=== PATIENT | female | born 1940 | race Caucasian/White ===

== ENCOUNTER 2016-10-21 18:25 | Observation (INO) | payer MEDICARE, OTHER ==
--- NOTE | ~2016-10-21 | DS ---
Discharge Summary [facility] [address] [place]. [address] NAME: SENG RAY : 41 STATUS : DIS Desmond PAT#: [id number] AGE: 76 ADM/REG DATE : 10/21/16 MR#: [id number] REPORT SERV DATE: 10/23/16 DICTATED BY: BARRY GARCIA DATE: 10/22/16 REPORT STATUS : Draft TRANSCRIBED BY: MODL DATE: 10/22/16 ADMISSION DATE: 10/21/2016 DISCHARGE DATE: 10/22/2016 DISCHARGE DIAGNOSES: 1. Hypoxemia transfusion related. 2. Chest pain related to transfusion reaction. 3. Pancytopenia due to aplastic anemia versus myelodysplastic syndrome. 4. Hypertension. CONSULTATION: Oncology, Dr. Randall Asher. LABORATORY DATA: Blood Work: WBC 0.7, hemoglobin 7.0, hematocrit 20.6, and platelet count is 32. Sodium is 140, potassium is 4.4, chloride is 107, CO2 is 23, BUN is 21, creatinine is 0.91, and glucose is 184. HOSPITAL COURSE: Please refer to history and physical dictated by Dr. Morris on 10/21/2016 for complete admission details. This patient is a 76-year-old female, who presented as a direct admission from the Infusion Center due to possible reaction to platelets. The patient was placed under observation and observed due to hypoxemia and chest pain related to her transfusion reaction. The patient did deny pain over the next 24 hours. The patient was on room air without difficulty. O2 sats within normal limits. Noted the patient's pancytopenia due to her aplastic anemia versus myelodysplastic syndrome. The patient did receive one unit of packed RBCs prior to discharge. The patient's blood pressure was monitored throughout her stay. The patient is being discharged home in hemodynamically stable condition. We will follow up with Dr. Asher within one week. DISCHARGE MEDICATIONS: 1. Atenolol 25 mg one p.o. every morning. 2. Folic acid one p.o. every morning. 3. Hydrocodone 10/325 mg one p.o. every 4 hours p.r.n. for pain. 4. Albuterol inhaler two puffs inhale every 4 hours p.r.n. for shortness of breath. 5. Effexor 75 mg p.o. every evening. This discharge took less than 30 minutes. /MEENA Barry Garcia, EDWIGE Discharge Summary [address] [address] NAME: SENG RAY : 41 STATUS : DIS Desmond PAT#: [id number] AGE: 76 ADM/REG DATE : 10/21/16 MR#: [id number] REPORT SERV DATE: 10/23/16 DICTATED BY: BARRY GARCIA DATE: 10/22/16 REPORT STATUS : Draft TRANSCRIBED BY: MEENA DATE: 10/22/16 / [id number] CC: MD Baylee Allen M.D.
--- NOTE | ~2016-10-21 | HP ---
History And Physical [address] [place]. [address] NAME: SENG RAY : 41 STATUS : ADM Desmond PAT#: [id number] AGE: 76 ADM/REG DATE : 10/21/16 MR#: [id number] REPORT SERV DATE: 10/22/16 DICTATED BY: DILSHAD LOZANO DATE: 10/21/16 REPORT STATUS : Draft TRANSCRIBED BY: MODL DATE: 10/21/16 DATE OF ADMISSION: 10/21/2016 POINT OF ENTRY: Direct admission from Infusion Center. PRIMARY CARE PHYSICIAN: Dr. Leon. PRIMARY ONCOLOGIST/NIGHT SUPERVISOR: Dr. Asher. CHIEF COMPLAINT: Shortness of breath and hypoxemia. HISTORY OF PRESENT ILLNESS: Ms. 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 The patient was placed on oxygen and subsequently admitted to the Hospitalist Service for close observation and followup. At the time of my evaluation, the patient currently denies any shortness of breath, diaphoresis, chest pain, cough, sputum production, wheezing, lower extremity edema. States she feels much better. Chest x-ray was done prior to my evaluation which per my review shows no evidence of any intravascular volume overload, does show some mild cardiomegaly as well as status post coronary artery bypass grafting. The patient is currently saturating 100% on 2 L by nasal cannula. REVIEW OF SYSTEMS: Comprehensive review of systems otherwise negative unless listed in history of present illness. PAST MEDICAL HISTORY: 1. 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 2. Coronary artery disease, status post coronary artery bypass grafting. 3. Hypertension. 4. Hyperlipidemia. 5. Anxiety. 6. Atrial fibrillation, not currently on any anticoagulation secondary to pancytopenia. 7. Iron-deficiency anemia. 8. Gastroesophageal reflux disease. 9. History of stroke. 10.Peripheral arterial disease. SURGICAL HISTORY: Cholecystectomy, abdominal hysterectomy, right total hip, coronary bypass History And Physical [address] [place]. [address] NAME: SENG RAY : 41 STATUS : ADM Desmond PAT#: [id number] AGE: 76 ADM/REG DATE : 10/21/16 MR#: [id number] REPORT SERV DATE: 10/22/16 DICTATED BY: DILSHAD LOZANO DATE: 10/21/16 REPORT STATUS : Draft TRANSCRIBED BY: MODL DATE: 10/21/16 grafting, appendectomy, umbilical hernia repair. ALLERGIES: TO CODEINE. HOME MEDICATIONS: 1. Albuterol two puffs inhalation q.4 hours p.r.n. 2. Tenormin 25 mg daily. 3. Atorvastatin 20 mg daily, currently on hold per Dr. Asher. 4. Folic acid 1 mg daily. 5. Neurontin 600 mg at bedtime, currently on hold per Dr. Asher. 6. Hydrochlorothiazide 12.5 mg daily, currently on hold per Dr. Asher. 7. Blue 10/325 one tab q.6 hours p.r.n. 8. Lisinopril 40 mg daily, currently on hold per Dr. Asher. 9. Protonix 40 mg b.i.d., currently on hold per Dr. Asher. 10.Effexor 75 mg at bedtime. SOCIAL HISTORY: She is a former smoker, but quit greater than a year ago. Denies alcohol or illicits. FAMILY MEDICAL HISTORY: Mother, father, and siblings all with extensive family history of diabetes as well as congestive heart failure. LABS AND IMAGIN. Chest x-ray per my review shows borderline cardiomegaly as well as status post coronary artery bypass grafting, but no evidence of any focal infiltrate consolidation, effusion, or evidence of intravascular volume overload. 2. Labs are pending at the time of dictation. PHYSICAL EXAMINATION: VITAL SIGNS: Temperature is 98.3 degrees Fahrenheit, pulse is 87, respirations 16, saturating 100% on 2 L by nasal cannula, blood pressure 140/65. GENERAL: The patient is awake, alert, in no acute distress. Resting comfortably in bed. Well-developed, well-nourished, elderly female. HEENT: Atraumatic and normocephalic. Moist mucous membranes. Pupils are equal, round, reactive to light and accommodation. Extraocular eye movements intact. No scleral icterus. NECK: No jugular venous distention. No carotid bruits. CARDIAC: Irregularly irregular rate and rhythm. Normal S1, S2. No murmurs or gallops. LUNGS: On oxygen, but in no respiratory distress, speaking in full sentences. I do not appreciate any wheezes, rhonchi, or crackles, has good air movement. ABDOMEN: Soft, nontender, nondistended. Good bowel sounds. No rebound, guarding, or rigidity. EXTREMITIES: Warm, well-perfused. No cyanosis, clubbing, or edema. SKIN: Warm and dry. PSYCH: Affect appropriate. NEURO: Alert and oriented times three. Cranial nerves II through XII grossly intact. Speech is normal. Gait not assessed. History And Physical [address] [address] NAME: SENG RAY : 41 STATUS : ADM Desmond PAT#: [id number] AGE: 76 ADM/REG DATE : 10/21/16 MR#: [id number] REPORT SERV DATE: 10/22/16 DICTATED BY: DILSHAD LOZANO DATE: 10/21/16 REPORT STATUS : Draft TRANSCRIBED BY: MEENA DATE: 10/21/16 ASSESSMENT AND PLAN: Ms. Ray is a 76-year-old female with history of pancytopenia who was given a platelet transfusion today in our Infusion Center when she developed the acute onset of shortness of breath, diaphoresis, chest pain, and hypoxemic concerning for possible allergic reaction versus transfusion-related lung injury. PROBLEM LIST: 1. Transfusion-related hypoxemia. 2. Chest pain. 3. Pancytopenia. 4. History of coronary artery disease. 5. History of hypertension. 6. History of atrial fibrillation. PLAN: 1. Transfusion-related hypoxemia. Etiology is unclear at this time. Chest x-ray is clear affectively ruling out TRALI making likely it is an allergic reaction. We will attempt to wean off her oxygen as tolerated overnight. Place her on DuoNeb as well as incentive spirometry. I do not see any need at this time for diuresis. We will check some basic labs as well as EKG given reports of diaphoresis, chest pain, and shortness of breath in addition to the hypoxemia. 2. Chest pain. The patient currently denies any chest pain at this time, but does report some discomfort in the setting of the transfusion reaction. We will check EKG as well as a set of cardiac enzymes. 3. Pancytopenia. Defer to patient's primary oncologist/high wire artist. 4. DVT prophylaxis. TEDs and SCDs given bleeding risk, given pancytopenia. CODE STATUS: The patient wished to be full code. JUVENAL/MEENA Dilshad Lozano MD / [id number]
[~2016-10-21 18:25] MED LIST: ALTA5 PO; ASAB PO; ATEN25 PO; ATEN50 PO; AUG875 PO; C2 PO; CYANO1000T PO; EFFEXXR37 PO; FOLIC PO; HYDROCHLOROT12.5 MG PO; HYDROCHLOROT25 MG PO; KLONO1 PO; KLONOPIN WAF1 MG PO; LEXAPRO10 PO; LIPITOR20 PO; LISINOPRIL40 MG PO; LORTAB10 PO; MEPERIDINE; MICROZIDE PO; NAP500 PO; NEUR100 PO; NEUR300 PO; NEUR600 PO; NORCO1 TAB PO; PLAVIX PO; PR25 PO; PROMETHAZINE; PROTONIX PO; PROTONIX20 MG PO; PROZ10 PO; XARELTO10 MG PO; XARELTO20 MG PO; ZESTRIL20 MG PO; ZESTRIL40 MG PO; ZOCOR80 MG PO; [UNRECOGNIZED DRUG - OTHER]; [UNRECOGNIZED DRUG - OTHER]
[2016-10-21] MEDS ORDERED: ATEN25 PO (19:45)
[2016-10-21] MEDS ORDERED: NORCO1 TAB PO (19:46)
[2016-10-21] MEDS ORDERED: LIPITOR20 PO (19:47)
[2016-10-21] MEDS ORDERED: PROAIR HFA INH (19:47)
[2016-10-21] MEDS ORDERED: FOLIC PO (19:47)
[2016-10-21] MEDS ORDERED: NEUR600 PO (19:48)
[2016-10-21] MEDS ORDERED: PROTONIX PO (19:49)
[2016-10-21] MEDS ORDERED: EFFEXXR75 PO (19:49)
[2016-10-21] MEDS ORDERED: HCTZ12.5 PO (19:50)
[2016-10-21] MEDS ORDERED: LISINOPRIL40 MG PO (19:50)
[2016-10-21 21:14] LABS: MEAN CORPUSCULAR HEMOGLOB 33.5 pg (26.0-34.0); MEAN PLATELET VOLUME 10.2 fL (9.2-13.0); RBC DISTRIBUTION WIDTH 15.8 % (12.0-16.0)
[2016-10-21 21:26] LABS: A/G RATIO 0.9 (0.7-1.9); ALBUMIN 3.1 G/DL (3.5-5.0); BUN (BLOOD UREA NITROGEN) 21 MG/DL (6-23); CALCIUM, SERUM 8.5 MG/DL (8.5-10.4); CHLORIDE, SERUM 107 MMOL/L (96-112); CO2 (CARBON DIOXIDE) 23 MMOL/L (24-34); CREATININE 0.91 MG/DL (0.55-1.02); GFR AFRICAN AMERICAN 72 ML/MIN (>=60); GFR NON AFRICAN AMERICAN 62 ML/MIN (>=60); GLOBULIN 3.6 G/DL (2.5-4.1); HEMATOCRIT 20.6 % (36.0-48.0); MANUAL DIFF YES %; MEAN CORPUSCULAR VOLUME 98.6 fL (80-100); PLATELET COUNT 32 10/3/uL (150-400); POTASSIUM, SERUM 4.4 MMOL/L (3.5-5.3); RED CELL COUNT 2.09 10/6/uL (4.0-5.6); SGOT(AST) 108 U/L (5-40); SGPT(ALT) 106 U/L (5-65); SODIUM, SERUM 140 MMOL/L (135-148); TOTAL PROTEIN 6.7 G/DL (6.0-8.5); TROPONIN I 0.03 NG/ML (<0.05); WHITE BLOOD CELLS 0.7 10/3/uL (4.5-10.5)
[2016-10-21 21:28] LABS: ALKALINE PHOSPHATASE 156 U/L (45-117); GLUCOSE, SERUM 184 MG/DL (60-99); TOTAL BILIRUBIN 0.4 MG/DL (0-1.2)
[2016-10-21 21:48] LABS: BAND NEUTROPHILS 10 %; LYMPHOCYTES 43 %; MONOCYTES 2 %; MONOCYTES ABSOLUTE (CALC) 0.01 10/3/uL (0.21-1.20); NEUTROPHILS ABSOLUTE (CALC) 0.38 10/3/uL (2.02-8.40); SEGMENTED NEUTROPHIL (0) 45 %; TOTAL NUCLEATED CELLS 51
[2016-10-21 21:49] LABS: ANISOCYTOSIS 1+ (5-10/OIF) (0-5/OIF); SPHEROCYTES OCC (0-2/OIF)
== END 2016-10-22 18:24 | disposition home or self-care (01) ==
LOC: 4EA 18:25
PROVIDERS: Internal Medicine
DX: R09.02 Hypoxemia (principal); D61.818 Other pancytopenia; M19.90 Unspecified osteoarthritis, unspecified site; I10 Essential (primary) hypertension; Z86.73 Personal history of transient ischemic attack (TIA), and cerebral infarction without residual deficits; D69.6 Thrombocytopenia, unspecified; I25.10 Atherosclerotic heart disease of native coronary artery without angina pectoris; E78.5 Hyperlipidemia, unspecified; I48.91 Unspecified atrial fibrillation; D61.9 Aplastic anemia, unspecified; D50.9 Iron deficiency anemia, unspecified; F41.9 Anxiety disorder, unspecified; I73.9 Peripheral vascular disease, unspecified; K21.9 Gastro-esophageal reflux disease without esophagitis; Z87.891 Personal history of nicotine dependence; Z79.899 Other long term (current) drug therapy; Z90.49 Acquired absence of other specified parts of digestive tract; Z90.710 Acquired absence of both cervix and uterus; Z98.890 Other specified postprocedural states; Z88.5 Allergy status to narcotic agent
CPT/HCPCS: 36415; 36430; 36513; 71010; 80053; 83880; 84484; 85025; 86850; 86900; 86901; 86920; 93005; 96374; A9270-GY; G0378; J0360; P9035; P9057

== ENCOUNTER 2016-11-04 14:17 | Inpatient (IN) | payer MEDICARE, OTHER ==
--- NOTE | ~2016-11-04 | DS ---
Discharge Summary [facility] [address] [facility] [place]. [address] NAME: SENG RAY : 41 STATUS : DIS IN PAT#: [id number] AGE: 76 ADM/REG DATE : 11/04/16 MR#: [id number] REPORT SERV DATE: 11/19/16 DICTATED BY: RANDALL MALONEY III DATE: 11/19/16 REPORT STATUS : Draft TRANSCRIBED BY: MODMerly DATE: 11/19/16 Data Collection from hospitalization DISCHARGE DIAGNOSES: 1. Aplastic anemia. 2. Hypertension. 3. Chronic pain. 4. Former smoker. CONSULTATIONS: None. PROCEDURES PERFORMED: None. MEDICATIONS: ProAir two puffs via inhaler every four hours as needed, Tenormin 25 mg every morning, cyclosporine 200 mg twice a day, Promacta 150 mg daily, folic acid 1 mg every evening, [place] 10/325 one tablet four times a day, Bactrim DS one tablet three times a week as instructed, and Effexor XR 75 mg every evening. CONDITION AT DISCHARGE: Stable. DISPOSITION: The patient was discharged home to be followed by home health care on a regular diet with activities as instructed. She would follow up with me on 11/11/2016. HOSPITAL COURSE: This is a 76-year-old female who has aplastic anemia. The patient has cytopenias suspected secondary to aplastic anemia. The patient was going to be admitted for horse antithymocyte globulin. We would also do cyclosporine and eltrombopag. Solu-Medrol would also be given. She was going to be transfused packed red blood cells and platelets. Hydrocodone would be given as needed for chronic pain. She was admitted to the hospital at this time for further evaluation and treatment. On the day following admission, she had no complaints other than difficulty sleeping. She was alert and cooperative. She had no edema. Total bilirubin was 2.3. Her blood pressure was moderately well controlled. She was tolerating ATGAM. On 11/06/2016, she did complain of some back pain during the night. She had some mild nausea. She was tolerating ATGAM very well. Cyclosporine was continued. Hydrochlorothiazide was added to her regimen. On 11/07/2016, she had no new complaints. Cyclosporine level was going to be checked. Platelets were transfused. It was felt that her blood pressure should improve post steroids. Discharge planning was performed. On 11/08/2016, she was alert and cooperative. She had no complaints. She completed ATGAM therapy. Cyclosporine was continued. Discharge instructions were given. Due to her improved and stable condition, she was discharged home to be followed by home health care with the above-stated instructions. Information collected by: Michelle Boyd I submit the above information as my discharge summary. TG/MODL Discharge Summary [address] [address] NAME: SENG RAY : 41 STATUS : DIS IN PAT#: [id number] AGE: 76 ADM/REG DATE : 11/04/16 MR#: [id number] REPORT SERV DATE: 11/19/16 DICTATED BY: RANDALL MALONEY III DATE: 11/19/16 REPORT STATUS : Draft TRANSCRIBED BY: MEENA DATE: 11/19/16 Randall Maloney III, M.D. / [id number] CC: Andry Sawant III, M.D.
[~2016-11-04 14:17] MED LIST changes: +EFFEXXR75 PO; +HCTZ12.5 PO; +PROAIR HFA INH
[2016-11-04 15:20] LABS: BASOPHILS 0 %; EOSINOPHILS 0.5 %; EOSINOPHILS ABSOLUTE 0.01 10/3/uL (0.0-0.53); LYMPHOCYTES 79.3 %; LYMPHOCYTES ABSOLUTE 1.69 10/3/uL (0.67-4.30); MEAN CORPUS HGB CONC 34.4 g/dL (32.0-36.0); MEAN CORPUSCULAR VOLUME 95.9 fL (80-100); MONOCYTES 3.8 %; MONOCYTES ABSOLUTE 0.08 10/3/uL (0.21-1.20); NEUTROPHILS 16.4 %; NEUTROPHILS ABSOLUTE 0.35 10/3/uL (2.02-8.40); RBC DISTRIBUTION WIDTH 14.9 % (12.0-16.0); RED CELL COUNT 1.94 10/6/uL (4.0-5.6)
[2016-11-04 15:22] LABS: HEMATOCRIT 18.6 % (36.0-48.0); HEMOGLOBIN 6.4 g/dL (12.0-16.0); PLATELET COUNT 5 10/3/uL (150-400); WHITE BLOOD CELLS 2.1 10/3/uL (4.5-10.5)
[2016-11-04 15:24] LABS: MANUAL DIFF NO %
[2016-11-04 15:31] LABS: A/G RATIO 1.1 (0.7-1.9); ALBUMIN 3.6 G/DL (3.5-5.0); ALKALINE PHOSPHATASE 130 U/L (45-117); BUN (BLOOD UREA NITROGEN) 16 MG/DL (6-23); CALCIUM, SERUM 8.6 MG/DL (8.5-10.4); CHLORIDE, SERUM 105 MMOL/L (96-112); CO2 (CARBON DIOXIDE) 24 MMOL/L (24-34); CREATININE 0.77 MG/DL (0.55-1.02); GFR AFRICAN AMERICAN 88 ML/MIN (>=60); GFR NON AFRICAN AMERICAN 76 ML/MIN (>=60); GLOBULIN 3.2 G/DL (2.5-4.1); GLUCOSE, SERUM 146 MG/DL (60-99); POTASSIUM, SERUM 3.6 MMOL/L (3.5-5.3); SGOT(AST) 17 U/L (5-40); SGPT(ALT) 22 U/L (5-65); SODIUM, SERUM 138 MMOL/L (135-148); TOTAL BILIRUBIN 0.4 MG/DL (0-1.2); TOTAL PROTEIN 6.8 G/DL (6.0-8.5)
[2016-11-05 06:15] LABS: MEAN PLATELET VOLUME 11.7 fL (9.2-13.0); RBC DISTRIBUTION WIDTH 15.1 % (12.0-16.0)
[2016-11-05 06:19] LABS: HEMATOCRIT 25.7 % (36.0-48.0); MEAN CORPUSCULAR VOLUME 91.5 fL (80-100); PLATELET COUNT 34 10/3/uL (150-400); RED CELL COUNT 2.81 10/6/uL (4.0-5.6); WHITE BLOOD CELLS 1.2 10/3/uL (4.5-10.5)
[2016-11-05 06:20] LABS: MANUAL DIFF YES %
[2016-11-05 06:37] LABS: A/G RATIO 1.1 (0.7-1.9); ALBUMIN 3.5 G/DL (3.5-5.0); ALKALINE PHOSPHATASE 119 U/L (45-117); BUN (BLOOD UREA NITROGEN) 13 MG/DL (6-23); CALCIUM, SERUM 8.8 MG/DL (8.5-10.4); CHLORIDE, SERUM 107 MMOL/L (96-112); CO2 (CARBON DIOXIDE) 25 MMOL/L (24-34); CREATININE 0.65 MG/DL (0.55-1.02); GFR AFRICAN AMERICAN 101 ML/MIN (>=60); GFR NON AFRICAN AMERICAN 87 ML/MIN (>=60); GLOBULIN 3.2 G/DL (2.5-4.1); GLUCOSE, SERUM 164 MG/DL (60-99); POTASSIUM, SERUM 4.2 MMOL/L (3.5-5.3); SGOT(AST) 25 U/L (5-40); SGPT(ALT) 27 U/L (5-65); SODIUM, SERUM 137 MMOL/L (135-148); TOTAL PROTEIN 6.7 G/DL (6.0-8.5)
[2016-11-05 06:38] LABS: TOTAL BILIRUBIN 2.3 MG/DL (0-1.2)
[2016-11-05 07:55] LABS: BAND NEUTROPHILS 12 %; IMMATURE GRANS ABSOLUTE (CALC) 0.02 10/3/uL (0.0-0.11); LYMPHOCYTES 50 %; METAMYELOCYTES 2 %; MONOCYTES 4 %; MONOCYTES ABSOLUTE (CALC) 0.05 10/3/uL (0.21-1.20); NEUTROPHILS ABSOLUTE (CALC) 0.53 10/3/uL (2.02-8.40); SEGMENTED NEUTROPHIL (0) 32 %; TOTAL NUCLEATED CELLS 100
[2016-11-05 07:56] LABS: RBC MORPHOLOGY NORM (NORMAL)
[2016-11-06 06:01] LABS: HEMATOCRIT 26.1 % (36.0-48.0); HEMOGLOBIN 9.2 g/dL (12.0-16.0); MEAN CORPUS HGB CONC 35.2 g/dL (32.0-36.0); MEAN CORPUSCULAR HEMOGLOB 32.3 pg (26.0-34.0); MEAN CORPUSCULAR VOLUME 91.6 fL (80-100); RBC DISTRIBUTION WIDTH 15.5 % (12.0-16.0); RED CELL COUNT 2.85 10/6/uL (4.0-5.6)
[2016-11-06 06:03] LABS: PLATELET COUNT 18 10/3/uL (150-400); WHITE BLOOD CELLS 1.2 10/3/uL (4.5-10.5)
[2016-11-06 06:04] LABS: MANUAL DIFF YES %
[2016-11-06 06:05] LABS: ALBUMIN 3.3 G/DL (3.5-5.0); ALKALINE PHOSPHATASE 129 U/L (45-117); CALCIUM, SERUM 9.1 MG/DL (8.5-10.4); CHLORIDE, SERUM 107 MMOL/L (96-112); CO2 (CARBON DIOXIDE) 21 MMOL/L (24-34); CREATININE 0.74 MG/DL (0.55-1.02); GFR AFRICAN AMERICAN 92 ML/MIN (>=60); GFR NON AFRICAN AMERICAN 79 ML/MIN (>=60); GLOBULIN 3.2 G/DL (2.5-4.1); GLUCOSE, SERUM 183 MG/DL (60-99); POTASSIUM, SERUM 4.1 MMOL/L (3.5-5.3); SGOT(AST) 89 U/L (5-40); SGPT(ALT) 125 U/L (5-65); SODIUM, SERUM 138 MMOL/L (135-148); TOTAL PROTEIN 6.5 G/DL (6.0-8.5)
[2016-11-06 06:08] LABS: BUN (BLOOD UREA NITROGEN) 18 MG/DL (6-23); TOTAL BILIRUBIN 1.5 MG/DL (0-1.2)
[2016-11-06 06:59] LABS: BAND NEUTROPHILS 1 %; LYMPHOCYTES 24 %; LYMPHOCYTES ABSOLUTE (CALC) 0.29 10/3/uL (0.67-4.30); MONOCYTES 4 %; MONOCYTES ABSOLUTE (CALC) 0.05 10/3/uL (0.21-1.20); NEUTROPHILS ABSOLUTE (CALC) 0.86 10/3/uL (2.02-8.40); RBC MORPHOLOGY NORM (NORMAL); SEGMENTED NEUTROPHIL (0) 71 %; TOTAL NUCLEATED CELLS 100
[2016-11-07 06:21] LABS: HEMATOCRIT 23.8 % (36.0-48.0); HEMOGLOBIN 8.6 g/dL (12.0-16.0); MEAN CORPUS HGB CONC 36.1 g/dL (32.0-36.0); MEAN CORPUSCULAR HEMOGLOB 32.7 pg (26.0-34.0); MEAN CORPUSCULAR VOLUME 90.5 fL (80-100); RBC DISTRIBUTION WIDTH 15.2 % (12.0-16.0); RED CELL COUNT 2.63 10/6/uL (4.0-5.6)
[2016-11-07 06:26] LABS: PLATELET COUNT 5 10/3/uL (150-400); WHITE BLOOD CELLS 0.8 10/3/uL (4.5-10.5)
[2016-11-07 06:27] LABS: MANUAL DIFF YES %
[2016-11-07 06:34] LABS: A/G RATIO 0.8 (0.7-1.9); ALBUMIN 2.8 G/DL (3.5-5.0); ALKALINE PHOSPHATASE 128 U/L (45-117); CALCIUM, SERUM 8.7 MG/DL (8.5-10.4); CHLORIDE, SERUM 105 MMOL/L (96-112); CO2 (CARBON DIOXIDE) 23 MMOL/L (24-34); CREATININE 0.66 MG/DL (0.55-1.02); GFR AFRICAN AMERICAN 100 ML/MIN (>=60); GFR NON AFRICAN AMERICAN 86 ML/MIN (>=60); GLOBULIN 3.7 G/DL (2.5-4.1); GLUCOSE, SERUM 201 MG/DL (60-99); POTASSIUM, SERUM 4.5 MMOL/L (3.5-5.3); SGOT(AST) 206 U/L (5-40); SGPT(ALT) 263 U/L (5-65); SODIUM, SERUM 137 MMOL/L (135-148); TOTAL BILIRUBIN 1.5 MG/DL (0-1.2); TOTAL PROTEIN 6.5 G/DL (6.0-8.5)
[2016-11-07 06:41] LABS: BUN (BLOOD UREA NITROGEN) 27 MG/DL (6-23)
[2016-11-07 06:51] LABS: BAND NEUTROPHILS 6 %; LYMPHOCYTES 24 %; LYMPHOCYTES ABSOLUTE (CALC) 0.19 10/3/uL (0.67-4.30); MONOCYTES 8 %; MONOCYTES ABSOLUTE (CALC) 0.06 10/3/uL (0.21-1.20); NEUTROPHILS ABSOLUTE (CALC) 0.54 10/3/uL (2.02-8.40); SEGMENTED NEUTROPHIL (0) 62 %; TOTAL NUCLEATED CELLS 100
[2016-11-07 06:52] LABS: RBC MORPHOLOGY NORM (NORMAL)
[2016-11-08 05:31] LABS: HEMATOCRIT 22.8 % (36.0-48.0); HEMOGLOBIN 8.4 g/dL (12.0-16.0); MEAN CORPUS HGB CONC 36.8 g/dL (32.0-36.0); MEAN CORPUSCULAR HEMOGLOB 32.7 pg (26.0-34.0); MEAN CORPUSCULAR VOLUME 88.7 fL (80-100); MEAN PLATELET VOLUME 10.5 fL (9.2-13.0); RBC DISTRIBUTION WIDTH 14.9 % (12.0-16.0); RED CELL COUNT 2.57 10/6/uL (4.0-5.6)
[2016-11-08 05:47] LABS: ALKALINE PHOSPHATASE 118 U/L (45-117); BUN (BLOOD UREA NITROGEN) 27 MG/DL (6-23); CALCIUM, SERUM 8.5 MG/DL (8.5-10.4); CHLORIDE, SERUM 102 MMOL/L (96-112); CO2 (CARBON DIOXIDE) 27 MMOL/L (24-34); CREATININE 0.54 MG/DL (0.55-1.02); GFR AFRICAN AMERICAN 107 ML/MIN (>=60); GFR NON AFRICAN AMERICAN 92 ML/MIN (>=60); GLOBULIN 3.1 G/DL (2.5-4.1); POTASSIUM, SERUM 4.1 MMOL/L (3.5-5.3); SGOT(AST) 90 U/L (5-40); SGPT(ALT) 249 U/L (5-65); SODIUM, SERUM 137 MMOL/L (135-148); TOTAL BILIRUBIN 1.1 MG/DL (0-1.2); TOTAL PROTEIN 6.1 G/DL (6.0-8.5)
[2016-11-08 05:59] LABS: PLATELET COUNT 43 10/3/uL (150-400)
[2016-11-08 06:00] LABS: MANUAL DIFF YES %
[2016-11-08 06:03] LABS: GLUCOSE, SERUM 126 MG/DL (60-99)
[2016-11-08 07:21] LABS: BAND NEUTROPHILS 3 %; LYMPHOCYTES 26 %; LYMPHOCYTES ABSOLUTE (CALC) 0.26 10/3/uL (0.67-4.30); MONOCYTES 15 %; MONOCYTES ABSOLUTE (CALC) 0.15 10/3/uL (0.21-1.20); NEUTROPHILS ABSOLUTE (CALC) 0.59 10/3/uL (2.02-8.40); RBC MORPHOLOGY NORM (NORMAL); SEGMENTED NEUTROPHIL (0) 56 %; TOTAL NUCLEATED CELLS 100
[2016-11-08] MEDS ORDERED: CYCLOSPORINE100 MG PO (08:31)
[2016-11-08] MEDS ORDERED: PROMACTA75 MG PO (08:34)
[2016-11-08] MEDS ORDERED: BACDS PO (08:35)
== END 2016-11-08 18:35 | disposition home health service (06) | DRG 847 ==
LOC: 4EA 14:17
PROVIDERS: Internal Medicine
PROC: 30233N1 Transfusion of Nonautologous Red Blood Cells into Peripheral Vein, Percutaneous Approach (ICD-10-PCS; principal; 2016-11-04)
PROC: 30233R1 Transfusion of Nonautologous Platelets into Peripheral Vein, Percutaneous Approach (ICD-10-PCS; 2016-11-05)
PROC: 02HV33Z Insertion of Infusion Device into Superior Vena Cava, Percutaneous Approach (ICD-10-PCS; 2016-11-05)
DX: Z51.11 Encounter for antineoplastic chemotherapy (principal); D61.9 Aplastic anemia, unspecified; I10 Essential (primary) hypertension; I25.10 Atherosclerotic heart disease of native coronary artery without angina pectoris; J45.909 Unspecified asthma, uncomplicated; Z95.5 Presence of coronary angioplasty implant and graft; Z90.49 Acquired absence of other specified parts of digestive tract; Z87.891 Personal history of nicotine dependence
CPT/HCPCS: 36415; 36569; 80053; 80158; 85025; 86850; 86900; 86901; 86920; 93005; A9270-GY; C1751; J0360; J1200; J1720; J2930; J7502; J7504; P9036; P9057

== ENCOUNTER 2016-11-11 19:28 | Inpatient (IN) | payer MEDICARE, OTHER ==
--- NOTE | ~2016-11-11 | HP ---
History And Physical [facility] [id number] [place]. [address] NAME: SENG RAY : 41 STATUS : ADM IN PAT#: [id number] AGE: 76 ADM/REG DATE : 11/11/16 MR#: [id number] REPORT SERV DATE: 11/12/16 DICTATED BY: MILO CABEZAS DATE: 11/11/16 REPORT STATUS : Draft TRANSCRIBED BY: MODMerly DATE: 11/11/16 DATE OF ADMISSION: 11/11/2016 CHIEF COMPLAINT: A 76-year-old female with severe pancytopenia, now presenting with fevers. HISTORY OF PRESENTING ILLNESS: The patient's history was obtained through careful interview with the patient, coupled with review of [facility] and [facility] medical records. The patient was just recently hospitalized for symptomatic pancytopenia with myelodysplastic syndrome as the presumed cause. She was started on chemotherapy under the care Dr. Asher. She was able to be discharged home on 11/08/2016, but is felt "flattened" without any energy since going home, and by the day of admission, she was so weak that she could not even stand or walk without assistance. Then today, she developed fevers up to 102.9 and chills. She describes abdominal pain at the waist level radiating up towards the right upper quadrant, an aching quality, 6 to 6.5 out of 10 severity. She has noticed a sore on the top of her head that has been present for about a week and it seems to be nonhealing and sometimes draining some kind of pus from it. It does not hurt though. She has had nausea, but no vomiting. No diarrhea. She has had shortness of breath characterized by dyspnea on exertion and a nonproductive cough. She has had palpitations, but no chest pain. Over the last two years, she has gradually lost 100 pounds going from 220 pounds to 120 pounds now. REVIEW OF SYSTEMS: Otherwise 14-point review of systems was obtained was negative. PAST MEDICAL HISTORY: 1. Pancytopenia with myelodysplastic syndrome, seen by Dr. Asher. 2. Coronary artery disease, status post CABG, followed by Dr. Alvarado. 3. Atrial fibrillation, not on anticoagulation secondary to severe anemia and thrombocytopenia. 4. Stroke, left frontal and right parietal. 5. Hypertension. 6. Gastroesophageal reflux disorder and history of GI bleed, seen by Dr. Wolf. 7. Anxiety. 8. Peripheral arterial disease. 9. Left adrenal adenoma. 10.Chronic pain management. History And Physical [address] [place]. [address] NAME: SENG RAY : 41 STATUS : ADM IN PAT#: [id number] AGE: 76 ADM/REG DATE : 11/11/16 MR#: [id number] REPORT SERV DATE: 11/12/16 DICTATED BY: MILO CABEZAS DATE: 11/11/16 REPORT STATUS : Draft TRANSCRIBED BY: MEENA DATE: 11/11/16 PAST SURGICAL HISTORY: 1. CABG. 2. Appendectomy. 3. Cholecystectomy. 4. Right hip surgery. 5. Hysterectomy. 6. Umbilical hernia repair. ALLERGIES: CODEINE. SOCIAL HISTORY: Quit smoking in 2000. No alcohol use. She is a . Has had four children, two of whom are though. She lives in [place], [place], alone. FAMILY HISTORY: Had a son, who had a CABG at 40 years of age. A strong family history of coronary artery disease, congestive heart failure, and diabetes. CURRENT MEDICATIONS: Include albuterol inhaler; Tenormin 25 mg p.o. daily; cyclosporine capsules 200 mg p.o. b.i.d.; Promacta 150 mg p.o. daily; folic acid; hydrocodone; Bactrim double strength on Friday, Friday, Friday; chemotherapy; Effexor XR 75 mg p.o. daily. PHYSICAL EXAMINATION: VITAL SIGNS: Temperature 102.9, pulse 152, blood pressure 162/68, respiratory rate is 15, O2 saturation 95% on room air. GENERAL: An ill-appearing female, but in no evidence of particular distress. HEENT: The patient has conjunctival pallor. No scleral icterus. Nares are patent. Oropharynx is clear of obstruction. Moist mucous membranes. No intraoral lesions. NECK: Trachea midline. No thyromegaly. LYMPH: No cervical lymphadenopathy. No supraclavicular lymphadenopathy. No inguinal lymphadenopathy. RESPIRATORY: Clear to auscultation at bases. No wheezes, rales, or rhonchi. Normal respiratory effort. CARDIOVASCULAR: Tachycardic, irregularly irregular. No murmurs, rubs, or gallops. No current extremity edema is appreciated. ABDOMEN: Soft, nontender, nondistended. Normal bowel sounds auscultated throughout. No hepatosplenomegaly. DERMATOLOGICAL: The patient has peripheral pallor. No cyanosis. Warm and dry extremities. PSYCHIATRIC: Normal affect. Good mood. Alert and oriented x3. LABORATORY DATA: White blood cell count 1.7 with an absolute neutrophil count of 1.17, hemoglobin 5.8, hematocrit 16.4, platelets 6. Sodium 132, potassium 3.9, chloride 97, bicarb 28, BUN 20, creatinine 0.5, glucose 134, albumin 2.7, lactic acid 1.3. INR 1.2. Liver enzymes within normal limits. STUDIES: 1. Chest x-ray by my own evaluation shows no acute cardiopulmonary process. 2. EKG by my own evaluation shows rapid atrial fibrillation with atrial flutter History And Physical [address] [address] NAME: SENG RAY : 41 STATUS : [facility] [id number] AGE: 76 ADM/REG DATE : 11/11/16 MR#: [id number] REPORT SERV DATE: 11/12/16 DICTATED BY: MILO CABEZAS DATE: 11/11/16 REPORT STATUS : Draft TRANSCRIBED BY: MEENA DATE: 11/11/[address] depressions in leads V4 through V6 and lead I. ASSESSMENT AND PLAN: 1. Pancytopenia with myelodysplastic syndrome. Consult Dr. Asher. 2. Symptomatic anemia. Transfuse blood. 3. Thrombocytopenia. Transfuse platelets. 4. Leukopenic fevers with absolute neutrophil count of 1.17. Check blood cultures. Place on IV cefepime and consult Infectious Disease. 5. Rapid atrial fibrillation. Is improving with supportive care. No anticoagulation secondary to hematological disease. 6. Late effects of stroke. KPL/MODL Milo Cabezas M.D. / [id number] CC: Andry Bolanos M.D. Bertrand Marquess Anz III, M.D.
--- NOTE | ~2016-11-11 | IDS ---
Interim Discharge Summary [facility] [address] [place]. [address] NAME: SENG RAY : 41 STATUS : ADM IN PAT#: [id number] AGE: 76 ADM/REG DATE : 11/11/16 MR#: [id number] REPORT SERV DATE: 11/15/16 DICTATED BY: Sadia AGRCIA DATE: 11/15/16 REPORT STATUS : Draft TRANSCRIBED BY: MODL DATE: 11/15/16 ADMISSION DATE: 11/11/2016 DISCHARGE DATE: INTERIM SUMMARY DATE: 11/15/2016. DIAGNOSES AT DISCHARGE: Elevated troponin most consistent with non-STEMI, but could also be related to demand ischemia; sepsis present on admission, resolved; MSSA bacteremia; aplastic anemia, on chemotherapy per Medical Oncology; coronary artery disease with prior CABG; old CVA; GERD; peripheral arterial disease; chronic pain syndrome; elevated total bilirubin. ACTIVE CONSULTATIONS: Infectious Disease and Medical Oncology. PROCEDURES: None. BRIEF SUMMARY: A 76-year-old female patient with aplastic anemia/myelodysplastic syndrome, on active chemotherapy, was admitted with sepsis syndrome and neutropenic fever to the intermediate care. Started initially on broad-spectrum antimicrobial therapy, but blood cultures subsequently grew methicillin-sensitive Staph aureus and she has been transitioned to IV Ancef under the care of Infectious Disease. Her PICC line has been removed and we are maintaining her on a peripheral IV for antimicrobial therapy while we continue to serve her progress. The patient has pancytopenia related to her myelodysplastic syndrome. This is monitored daily by Medical Oncology. The patient had an elevated troponin on admission that did trend upward initially and then back down, this could be related to a non-STEMI for which she is only eligible for medical therapy given her pancytopenia and bleeding risk. This could also be related to demand ischemia related to her sepsis syndrome on presentation. She did have an echocardiogram that did show some mild wall motion abnormality, this ultimately is nonconclusive. The patient continues to make good medical progress. She continues on IV Ancef per Infectious Disease recommendations, and we continue to closely monitor her blood counts and electrolytes. The patient will likely be in the hospital through the weekend for continued IV antibiotics and continued monitoring. Recommendations for the duration of antimicrobial therapy to be made by ID as well as the recommendations for a repeat PICC line or other appliance for ongoing IV access and IV antibiotics after the first of the week. The patient's hospital care will be provided by another member of the team starting 11/16/2016 with ongoing co-management by Infectious Disease and Medical Oncology. SALLY/MEENA Sadia Garcia M.D. / [id number] Interim Discharge Summary [address] [address] NAME: SENG RAY : 41 STATUS : ADM IN PAT#: [id number] AGE: 76 ADM/REG DATE : 11/11/16 MR#: [id number] REPORT SERV DATE: 11/15/16 DICTATED BY: Sadia GARCIA DATE: 11/15/16 REPORT STATUS : Draft TRANSCRIBED BY: MEENA DATE: 11/15/16 CC: Caesar Solis II, MD
--- NOTE | ~2016-11-11 | DS ---
Discharge Summary [facility] [address] [place]. [address] NAME: SENG RAY : 41 STATUS : DIS IN PAT#: [id number] AGE: 76 ADM/REG DATE : 11/11/16 MR#: [id number] REPORT SERV DATE: 11/21/16 DICTATED BY: FAN FUNG DATE: 11/21/16 REPORT STATUS : Draft TRANSCRIBED BY: MODL DATE: 11/21/16 ADMISSION DATE: 11/11/2016 DISCHARGE DATE: 11/21/2016 DISCHARGE DIAGNOSES: 1. Methicillin-sensitive staphylococcus aureus bacteremia, unclear source. 2. Sepsis, present on admission, resolved. 3. Aplastic anemia, on chemotherapy. 4. Coronary artery disease. 5. Old cerebrovascular accident. 6. Gastroesophageal reflux disease. 7. Peripheral artery disease. 8. Chronic pain. 9. Non-ST elevation myocardial infarction, probably related to demand ischemia on initial presentation, resolved. CONSULTANTS: 1. Infectious Disease, Dr. Cristina. 2. Medical Oncology, Dr. Asher. PROCEDURES: None. HOSPITAL COURSE: This is a 76-year-old lady with history of aplastic anemia and myelodysplastic syndrome, on active chemotherapy, who was admitted to the hospital with acute sepsis syndrome and neutropenic fever. For details, please refer to the excellent H and P by Dr. Florentin Chaves and also please refer to interim discharge summary by Dr. Santos. I assumed care of this patient on 11/19/2016, and by then, the patient had gotten out of the IMCU and was doing much better. The patient's sepsis had resolved and the patient was back at her baseline health status. The patient was evaluated by Physical Therapy, who recommended inpatient rehab and thus referral was made to [facility]. The patient was accepted there, however, the patient did not want to be discharged to inpatient rehab. On the day of discharge, the patient did eventually decided to go to inpatient rehab for a week as otherwise the patient would have to pay for outpatient antibiotic therapy for the MSSA bacteremia out of her own pocket. The patient has seven days of IV Ancef therapy left remaining. PICC line was placed prior to discharge and the patient will be followed closely as an outpatient. DISCHARGE DISPOSITION: [facility]. DISCHARGE MEDICATIONS: The patient will need a one-week remaining therapy of IV Ancef. Otherwise, no significant changes. FOLLOWUP: 1. Please follow up with PCP in the next one to two weeks. 2. Please follow up with Dr. Asher as instructed. 3. Please follow up with Dr. Cristina as instructed. Discharge Summary [address] [place]. [address] NAME: SENG RAY : 42 STATUS : DIS IN PAT#: [id number] AGE: 76 ADM/REG DATE : 11/11/16 MR#: [id number] REPORT SERV DATE: 11/21/16 DICTATED BY: FAN FUNG DATE: 11/21/16 REPORT STATUS : Draft TRANSCRIBED BY: MEENA DATE: 11/21/16 A total of 40 minutes spent in coordinating this patient's discharge today. DICTATED BY: Fan Fung MD [facility] [place] Fan Fung MD / [id number] CC: MD Baylee Ruth M.D.
--- NOTE | ~2016-11-11 | CN ---
Consultation Report [facility] [address] [place]. [address] NAME: SENG RAY : 42 STATUS : ADM IN PAT#: [id number] AGE: 76 ADM/REG DATE : 11/11/16 MR#: [id number] REPORT SERV DATE: 11/12/16 DICTATED BY: JASON RAY DATE: 11/12/16 REPORT STATUS : Draft TRANSCRIBED BY: MODL DATE: 11/12/16 INFECTIOUS DISEASE CONSULTATION DATE OF CONSULTATION: REFERRING PHYSICIAN: Florentin Chaves M.D. REASON FOR CONSULT: Fever in a leukopenic in a patient. A 76 years old white lady, with history of coronary artery disease, status post CABG, atrial fibrillation, strokes, hiatal hernia, right hip replacement, was diagnosed in September with aplastic anemia. She had a brief admission here at the end of September with hypoxemia thought to be reaction to platelet transfusion. She was readmitted between the 11/04/2016 and 11/08/2016 with pancytopenia and started on treatment with horse antithymocyte globulin. She also received cyclosporine and platelet production stimulator named eltrombopag. After this treatment her liver enzymes were high. The patient said she felt like she had the flu with body aches, nausea, and weakness. She went home on 11/08/2016, but continued to be very weak. She then developed fevers. She had severe chills. She states she has some chronic abdominal pain that also happened over this last few days. It is really hard for me to tell if there is any acute component to it. She has history of constipation. She has had nausea, but no vomiting. No urinary symptoms. She has a skin lesion on the top of her head that she thinks it had some drainage at some point. She has a very numerous bruises of different sizes all over her body. She has chronic arthralgias, but it does not seem to have an acute component. She has had some shortness of breath, and little cough. Yesterday, she was told to come for admission because of fever, in the ER it was 102.9. LABORATORY DATA: Lab work showed a WBC of 1.7, with a hemoglobin of 5.8, platelets of 6, segments 55, bands 14, lymphocytes 29%. Other labs creatinine 0.5. Lactic acid 1.3. INR 1.2. Procalcitonin 0.29, bilirubin 3, ALT 67, AST 11. Chest x-ray without infiltrates. Antibiotics were started with cefepime. She also had atrial fibrillation with rapid ventricular rate. Today, the admission blood cultures came back positive with the a rapid identification test suggestive of methicillin sensitive Staph aureus. The patient's blood pressure has been stable. She has no oxygenation problems. Her highest temperature here is 100. Lab work today shows a procalcitonin increased to 0.99, WBC of 1.4, with segments 44, bands 18, platelets after transfusion 36, hemoglobin after transfusion 8.3, troponin elevated at 1.4. Liver enzymes, bilirubin increased to 4.7, but alkaline phosphatase is 104, so improved; ALT 53, AST 31, so not elevated. Urinalysis with urobilinogen. PAST MEDICAL HISTORY: As I mentioned plus cholecystectomy, hysterectomy, appendectomy, umbilical hernia surgery, she had perforated gallbladder, right hip replacement. Consultation Report [address] [address] NAME: SENG RAY : 42 STATUS : ADM IN [facility]#: [id number] AGE: 76 ADM/REG DATE : 11/11/16 MR#: [id number] REPORT SERV DATE: 11/12/16 DICTATED BY: JASON RAY DATE: 11/12/16 REPORT STATUS : Draft TRANSCRIBED BY: MEENA DATE: 11/12/[address] scan showed a left adrenal possible adenoma, hiatal hernia, bladder diverticula, and colon diverticula, she has a history of GI bleeding, and GERD. FAMILY HISTORY: Diabetes and heart disease. SOCIAL HISTORY: She is a . After recent discharge her sister stayed with her. Quit smoking. ALLERGIES: NONE. MEDICATIONS ON ADMISSION: Albuterol, atenolol, cyclosporine, eltrombopag, folic acid, [place]. She states she is on chronic pain treatment and she takes her pain medications every six hours. Effexor extended release and Bactrim one double strength tablet three times a week. PHYSICAL EXAMINATION: GENERAL: On exam, she is alert and awake. She is a poor historian. HEENT: She has an upper denture. She has a broken right lower tooth. Eyes with white sclerae. LUNGS: Clear to auscultation. HEART: Regular rhythm without murmurs. ABDOMEN: Obese, compressible, and soft. SKIN: With diffuse ecchymosis all over her body. Joints without obvious swelling or pain with range of motion. Skin with a scab on the vertex, I could not express any pus from it, it is about 1 to 2 cm, looked like an eschar. GENITOURINARY: She wears diapers. LINES: She has a right arm PICC line and the site has an ecchymosis. The nurse tells me that the line works well. ASSESSMENT AND PLAN: 1. MSSA, sepsis, and bacteremia. 2. Pancytopenia with leukopenia, but not absolute neutropenia. 3. Aplastic anemia. She was treated with horse antithymocyte globulin last week, and she is on treatment with cyclosporine, and eltrombopag. 4. Hyperbilirubinemia without elevation in the other liver enzymes and alkaline phosphatase. This is presumed to be secondary to hemolysis. 5. She came in with severe anemia. 6. History of atrial fibrillation, coronary disease, and CABG. 7. Right hip replacement without obvious evidence of infection. 8. Hiatal hernia. In regard to possible source of infection. The two obvious potential sources are the PICC line and the scalp skin lesion. Obviously, with so many ecchymosis, recent hospital stay, she could have other skin source. This is presumed MSSA, so I am going to change the antibiotic to Ancef. We will need to Consultation Report [address] [place]. [address] NAME: SENG RAY : 42 STATUS : ADM IN [facility]#: [id number] AGE: 76 ADM/REG DATE : 11/11/16 MR#: [id number] REPORT SERV DATE: 11/12/16 DICTATED BY: JASON RAY DATE: 11/12/16 REPORT STATUS : Draft TRANSCRIBED BY: MODMerly DATE: 11/12/16 follow blood cultures, and liver enzymes, and troponin. We will check an echocardiogram to rule out endocarditis. I am in favor of discontinuing the PICC line, but she has severe thrombocytopenia and numerous ecchymosis. I discussed with Dr. Asher, who feels that she has been neutropenic since somewhere around September, and she will continue to be for several months. I discussed with Dr. Santos, as well the nurse, and I discussed with the patient. Time spent more than an hour and 15 minutes. PC/MODL Jason Ray M.D. / [id number] CC: MD Baylee Kent II, M.D.
[~2016-11-11 19:28] MED LIST changes: +BACDS PO; +CYCLOSPORINE100 MG PO; +PROMACTA75 MG PO
[2016-11-11 19:31] LABS: BASOPHILS 0 %; EOSINOPHILS 0 %; IMMATURE GRANULOCYTES 0.6 %; IMMATURE GRANULOCYTES ABSOLUTE 0.01 10/3/uL (0.0-0.11); LYMPHOCYTES 35.1 %; MEAN CORPUS HGB CONC 35.4 g/dL (32.0-36.0); MEAN CORPUSCULAR HEMOGLOB 31.9 pg (26.0-34.0); MEAN CORPUSCULAR VOLUME 90.1 fL (80-100); MONOCYTES 5.3 %; MONOCYTES ABSOLUTE 0.09 10/3/uL (0.21-1.20); NEUTROPHILS ABSOLUTE 1.01 10/3/uL (2.02-8.40); RBC DISTRIBUTION WIDTH 14.2 % (12.0-16.0)
[2016-11-11 19:34] LABS: ER CBC TAT 0 Hrs 13 Mins; HEMATOCRIT 16.4 % (36.0-48.0); HEMOGLOBIN 5.8 g/dL (12.0-16.0); RED CELL COUNT 1.82 10/6/uL (4.0-5.6); WHITE BLOOD CELLS 1.7 10/3/uL (4.5-10.5)
[2016-11-11 19:35] LABS: PLATELET COUNT 6 10/3/uL (150-400)
[2016-11-11 19:37] LABS: INTERNATIONAL NORMAL RATI 1.2 UNITS (-); PARTIAL THROMBO TIME 32.1 SEC (22.5-37.2); PROTIME (NOT ORD) 15.1 SEC (12.0-14.5)
[2016-11-11 19:38] LABS: MANUAL DIFF NO %
[2016-11-11 19:44] LABS: A/G RATIO 0.8 (0.7-1.9); ALBUMIN 2.7 G/DL (3.5-5.0); CHLORIDE, SERUM 97 MMOL/L (96-112); CO2 (CARBON DIOXIDE) 28 MMOL/L (24-34); CREATININE 0.51 MG/DL (0.55-1.02); GFR AFRICAN AMERICAN 109 ML/MIN (>=60); GFR NON AFRICAN AMERICAN 94 ML/MIN (>=60); GLOBULIN 3.2 G/DL (2.5-4.1); GLUCOSE, SERUM 134 MG/DL (60-99); POTASSIUM, SERUM 3.9 MMOL/L (3.5-5.3); SGOT(AST) 11 U/L (5-40); SGPT(ALT) 67 U/L (5-65); SODIUM, SERUM 132 MMOL/L (135-148); TOTAL PROTEIN 5.9 G/DL (6.0-8.5)
[2016-11-11 19:46] LABS: ALKALINE PHOSPHATASE 100 U/L (45-117); BUN (BLOOD UREA NITROGEN) 20 MG/DL (6-23)
[2016-11-11 19:47] LABS: BAND NEUTROPHILS 14 %; EOSINOPHILS 1 %; EOSINOPHILS ABSOLUTE (CALC) 0.02 10/3/uL (0.0-0.53); ER DIFF TAT 0 Hrs 26 Mins; LYMPHOCYTES 29 %; LYMPHOCYTES ABSOLUTE (CALC) 0.49 10/3/uL (0.67-4.30); MONOCYTES 1 %; MONOCYTES ABSOLUTE (CALC) 0.02 10/3/uL (0.21-1.20); NEUTROPHILS ABSOLUTE (CALC) 1.17 10/3/uL (2.02-8.40); SEGMENTED NEUTROPHIL (0) 55 %; TOTAL NUCLEATED CELLS 100; TOXIC GRANULATION 2+
[2016-11-11 19:48] LABS: HYPOCHROMIA 1+ (3-10/OIF) (0-2/OIF)
[2016-11-11 19:49] LABS: LACTATE 1.3 MMOL/L (0.3-2.4)
[2016-11-11 20:08] LABS: ASCORBIC ACID (UR NOT ORDER) NEG (NEG); BILIRUBIN, URINE NEGATIVE (NEG); ER URINALYSIS TAT 0 Hrs 09 Mins; KETONE, URINE NEGATIVE (NEG); LEUKOCYTE ESTERASE(NOT OR NEG (NEG); NITRITE (URINE) NEG (NEG); WBC (NOT ORDERED) (RFLEX) 4 (0-5)
[2016-11-11 20:16] LABS: PROCALCITONIN 0.29 ng/mL (<0.5)
[2016-11-11] MEDS ORDERED: ATEN25 PO (21:15)
[2016-11-11] MEDS ORDERED: PROAIR HFA INH (21:15)
[2016-11-11] MEDS ORDERED: SANDIMMUNE100 MG PO (21:16)
[2016-11-11] MEDS ORDERED: NORCO1 TAB PO (21:16)
[2016-11-11] MEDS ORDERED: FOLIC PO (21:16)
[2016-11-11] MEDS ORDERED: PROMACTA75 MG PO (21:16)
[2016-11-11] MEDS ORDERED: BACDS PO (21:17)
[2016-11-11] MEDS ORDERED: CHEMOTHERAPY (21:17)
[2016-11-11] MEDS ORDERED: EFFEXXR75 PO (21:17)
[2016-11-12 08:29] LABS: MEAN CORPUS HGB CONC 35.2 g/dL (32.0-36.0); MEAN CORPUSCULAR HEMOGLOB 30.6 pg (26.0-34.0); RBC DISTRIBUTION WIDTH 15.2 % (12.0-16.0)
[2016-11-12 08:30] LABS: HEMATOCRIT 23.6 % (36.0-48.0); HEMOGLOBIN 8.3 g/dL (12.0-16.0); MEAN CORPUSCULAR VOLUME 87.1 fL (80-100); PLATELET COUNT 36 10/3/uL (150-400); RED CELL COUNT 2.71 10/6/uL (4.0-5.6); WHITE BLOOD CELLS 1.4 10/3/uL (4.5-10.5)
[2016-11-12 08:31] LABS: MANUAL DIFF YES %
[2016-11-12 09:00] LABS: BAND NEUTROPHILS 18 %; LYMPHOCYTES 34 %; LYMPHOCYTES ABSOLUTE (CALC) 0.48 10/3/uL (0.67-4.30); MONOCYTES 4 %; MONOCYTES ABSOLUTE (CALC) 0.06 10/3/uL (0.21-1.20); NEUTROPHILS ABSOLUTE (CALC) 0.87 10/3/uL (2.02-8.40); SEGMENTED NEUTROPHIL (0) 44 %; TOTAL NUCLEATED CELLS 100
[2016-11-12 09:01] LABS: RBC MORPHOLOGY NORM (NORMAL)
[2016-11-12 09:14] LABS: A/G RATIO 0.7 (0.7-1.9); ALBUMIN 2.3 G/DL (3.5-5.0); ALKALINE PHOSPHATASE 104 U/L (45-117); BUN (BLOOD UREA NITROGEN) 20 MG/DL (6-23); CALCIUM, SERUM 7.8 MG/DL (8.5-10.4); CHLORIDE, SERUM 102 MMOL/L (96-112); COMPLEMENT C3 94 MG/DL (75-161); COMPLEMENT C4 11.2 MG/DL (16-47); CREATININE 0.54 MG/DL (0.55-1.02); GFR AFRICAN AMERICAN 107 ML/MIN (>=60); GFR NON AFRICAN AMERICAN 92 ML/MIN (>=60); GLOBULIN 3.3 G/DL (2.5-4.1); GLUCOSE, SERUM 149 MG/DL (60-99); SGPT(ALT) 53 U/L (5-65); SODIUM, SERUM 133 MMOL/L (135-148); TOTAL PROTEIN 5.6 G/DL (6.0-8.5)
[2016-11-12 09:15] LABS: CO2 (CARBON DIOXIDE) 22 MMOL/L (24-34); POTASSIUM, SERUM 4.1 MMOL/L (3.5-5.3); TOTAL BILIRUBIN 4.7 MG/DL (0-1.2)
[2016-11-12 09:16] LABS: SGOT(AST) 31 U/L (5-40); ULTRASENSITIVE TSH 0.261 MCIU/ML (0.358-3.740)
[2016-11-12 09:25] LABS: INTERNATIONAL NORMAL RATI 1.2 UNITS (-); PROTIME (NOT ORD) 15.5 SEC (12.0-14.5)
[2016-11-12 09:43] LABS: PROCALCITONIN 0.99 ng/mL (<0.5)
[2016-11-13 05:20] LABS: HEMATOCRIT 22.4 % (36.0-48.0); MEAN CORPUS HGB CONC 35.7 g/dL (32.0-36.0); MEAN CORPUSCULAR HEMOGLOB 30.5 pg (26.0-34.0); MEAN CORPUSCULAR VOLUME 85.5 fL (80-100); MEAN PLATELET VOLUME 9.6 fL (9.2-13.0); RBC DISTRIBUTION WIDTH 15.7 % (12.0-16.0); RED CELL COUNT 2.62 10/6/uL (4.0-5.6)
[2016-11-13 05:25] LABS: MANUAL DIFF YES %; PLATELET COUNT 24 10/3/uL (150-400); WHITE BLOOD CELLS 1.9 10/3/uL (4.5-10.5)
[2016-11-13 05:38] LABS: ALBUMIN 2.3 G/DL (3.5-5.0); CALCIUM, SERUM 8.4 MG/DL (8.5-10.4); CHLORIDE, SERUM 102 MMOL/L (96-112); CREATININE 0.44 MG/DL (0.55-1.02); GFR AFRICAN AMERICAN 114 ML/MIN (>=60); GFR NON AFRICAN AMERICAN 99 ML/MIN (>=60); POTASSIUM, SERUM 4.7 MMOL/L (3.5-5.3); SGOT(AST) 40 U/L (5-40); SGPT(ALT) 58 U/L (5-65); SODIUM, SERUM 134 MMOL/L (135-148); TOTAL PROTEIN 5.8 G/DL (6.0-8.5)
[2016-11-13 05:40] LABS: ALKALINE PHOSPHATASE 143 U/L (45-117); BUN (BLOOD UREA NITROGEN) 24 MG/DL (6-23); CO2 (CARBON DIOXIDE) 27 MMOL/L (24-34); DIRECT BILIRUBIN 2.3 MG/DL (0.0-0.4); GLUCOSE, SERUM 111 MG/DL (60-99); INDIRECT BILIRUBIN(NOT ORDER) 1.6 MG/DL (0.1-0.9); TOTAL BILIRUBIN 3.9 MG/DL (0-1.2)
[2016-11-13 07:25] LABS: BAND NEUTROPHILS 8 %; LYMPHOCYTES 22 %; LYMPHOCYTES ABSOLUTE (CALC) 0.42 10/3/uL (0.67-4.30); MONOCYTES 10 %; MONOCYTES ABSOLUTE (CALC) 0.19 10/3/uL (0.21-1.20); NEUTROPHILS ABSOLUTE (CALC) 1.29 10/3/uL (2.02-8.40); PLATELET ESTIMATE DEC (ADEQUATE); RBC MORPHOLOGY NORM (NORMAL); SEGMENTED NEUTROPHIL (0) 60 %; TOTAL NUCLEATED CELLS 100
[2016-11-13 10:56] LABS: ANA PATTERN HOMOGENEOUS; ANA TITER 1:40 TITER
[2016-11-14 06:43] LABS: HEMATOCRIT 21.8 % (36.0-48.0); HEMOGLOBIN 7.3 g/dL (12.0-16.0); MEAN CORPUSCULAR HEMOGLOB 29.4 pg (26.0-34.0); MEAN CORPUSCULAR VOLUME 87.9 fL (80-100); RBC DISTRIBUTION WIDTH 15.6 % (12.0-16.0); RED CELL COUNT 2.48 10/6/uL (4.0-5.6)
[2016-11-14 06:45] LABS: MEAN CORPUS HGB CONC 33.5 g/dL (32.0-36.0); PLATELET COUNT 23 10/3/uL (150-400); WHITE BLOOD CELLS 0.4 10/3/uL (4.5-10.5)
[2016-11-14 06:46] LABS: MANUAL DIFF YES %
[2016-11-14 07:01] LABS: BUN (BLOOD UREA NITROGEN) 27 MG/DL (6-23); CALCIUM, SERUM 8.2 MG/DL (8.5-10.4); CHLORIDE, SERUM 100 MMOL/L (96-112); CO2 (CARBON DIOXIDE) 24 MMOL/L (24-34); CREATININE 0.55 MG/DL (0.55-1.02); GFR AFRICAN AMERICAN 106 ML/MIN (>=60); GFR NON AFRICAN AMERICAN 92 ML/MIN (>=60); GLUCOSE, SERUM 111 MG/DL (60-99); POTASSIUM, SERUM 4.4 MMOL/L (3.5-5.3); SODIUM, SERUM 133 MMOL/L (135-148)
[2016-11-14 07:06] LABS: TROPONIN I 1.11 NG/ML (<0.05)
[2016-11-14 08:25] LABS: BAND NEUTROPHILS 6 %; LYMPHOCYTES 26 %; MONOCYTES 6 %; MONOCYTES ABSOLUTE (CALC) 0.02 10/3/uL (0.21-1.20); NEUTROPHILS ABSOLUTE (CALC) 0.27 10/3/uL (2.02-8.40); RBC MORPHOLOGY NORM (NORMAL); SEGMENTED NEUTROPHIL (0) 62 %; TOTAL NUCLEATED CELLS 100
[2016-11-15 06:29] LABS: HEMATOCRIT 21.7 % (36.0-48.0); HEMOGLOBIN 7.7 g/dL (12.0-16.0); MEAN CORPUSCULAR VOLUME 87.5 fL (80-100); MEAN PLATELET VOLUME 10.2 fL (9.2-13.0); RBC DISTRIBUTION WIDTH 15.3 % (12.0-16.0); RED CELL COUNT 2.48 10/6/uL (4.0-5.6)
[2016-11-15 06:36] LABS: MANUAL DIFF YES %; MEAN CORPUS HGB CONC 35.5 g/dL (32.0-36.0); PLATELET COUNT 13 10/3/uL (150-400); WHITE BLOOD CELLS 1.8 10/3/uL (4.5-10.5)
[2016-11-15 06:47] LABS: A/G RATIO 0.6 (0.7-1.9); ALBUMIN 2.1 G/DL (3.5-5.0); BUN (BLOOD UREA NITROGEN) 25 MG/DL (6-23); CHLORIDE, SERUM 100 MMOL/L (96-112); CO2 (CARBON DIOXIDE) 27 MMOL/L (24-34); GFR AFRICAN AMERICAN 110 ML/MIN (>=60); GFR NON AFRICAN AMERICAN 95 ML/MIN (>=60); GLOBULIN 3.5 G/DL (2.5-4.1); POTASSIUM, SERUM 4.3 MMOL/L (3.5-5.3); SGOT(AST) 21 U/L (5-40); SGPT(ALT) 15 U/L (5-65); SODIUM, SERUM 133 MMOL/L (135-148); TOTAL PROTEIN 5.6 G/DL (6.0-8.5)
[2016-11-15 06:48] LABS: ALKALINE PHOSPHATASE 113 U/L (45-117); GLUCOSE, SERUM 81 MG/DL (60-99); TOTAL BILIRUBIN 3.3 MG/DL (0-1.2)
[2016-11-15 07:50] LABS: BAND NEUTROPHILS 4 %; LYMPHOCYTES 66 %; LYMPHOCYTES ABSOLUTE (CALC) 1.19 10/3/uL (0.67-4.30); MONOCYTES 4 %; MONOCYTES ABSOLUTE (CALC) 0.07 10/3/uL (0.21-1.20); NEUTROPHILS ABSOLUTE (CALC) 0.54 10/3/uL (2.02-8.40); RBC MORPHOLOGY NORM (NORMAL); SEGMENTED NEUTROPHIL (0) 26 %; TOTAL NUCLEATED CELLS 100
[2016-11-15 08:46] LABS: BASOPHILS 0 %; EOSINOPHILS 0 %; IMMATURE GRANULOCYTES 0.6 %; IMMATURE GRANULOCYTES ABSOLUTE 0.01 10/3/uL (0.0-0.11); LYMPHOCYTES 64.9 %; LYMPHOCYTES ABSOLUTE 1.13 10/3/uL (0.67-4.30); MONOCYTES 4.6 %; MONOCYTES ABSOLUTE 0.08 10/3/uL (0.21-1.20); NEUTROPHILS 29.9 %; NEUTROPHILS ABSOLUTE 0.52 10/3/uL (2.02-8.40)
[2016-11-15 08:47] LABS: RETICULOCYTE COUNT 0.6 % (0.5-2.5); RETICULOCYTE COUNT ABSOLUTE 14.1 10/3/uL (20.2-119.8)
[2016-11-16 06:47] LABS: HEMATOCRIT 21.2 % (36.0-48.0); HEMOGLOBIN 7.7 g/dL (12.0-16.0); MEAN CORPUS HGB CONC 36.3 g/dL (32.0-36.0); MEAN CORPUSCULAR HEMOGLOB 31.2 pg (26.0-34.0); MEAN CORPUSCULAR VOLUME 85.8 fL (80-100); RBC DISTRIBUTION WIDTH 14.9 % (12.0-16.0); RED CELL COUNT 2.47 10/6/uL (4.0-5.6); WHITE BLOOD CELLS 1.5 10/3/uL (4.5-10.5)
[2016-11-16 06:48] LABS: MANUAL DIFF YES %; PLATELET COUNT 12 10/3/uL (150-400)
[2016-11-16 07:00] LABS: A/G RATIO 0.6 (0.7-1.9); ALBUMIN 2.3 G/DL (3.5-5.0); ALKALINE PHOSPHATASE 121 U/L (45-117); BUN (BLOOD UREA NITROGEN) 23 MG/DL (6-23); CALCIUM, SERUM 7.9 MG/DL (8.5-10.4); CHLORIDE, SERUM 102 MMOL/L (96-112); CO2 (CARBON DIOXIDE) 29 MMOL/L (24-34); CREATININE 0.49 MG/DL (0.55-1.02); GFR AFRICAN AMERICAN 110 ML/MIN (>=60); GFR NON AFRICAN AMERICAN 95 ML/MIN (>=60); GLOBULIN 3.8 G/DL (2.5-4.1); POTASSIUM, SERUM 4.4 MMOL/L (3.5-5.3); SGOT(AST) 16 U/L (5-40); SGPT(ALT) 10 U/L (5-65); SODIUM, SERUM 136 MMOL/L (135-148); TOTAL BILIRUBIN 2.9 MG/DL (0-1.2); TOTAL PROTEIN 6.1 G/DL (6.0-8.5)
[2016-11-16 07:01] LABS: GLUCOSE, SERUM 99 MG/DL (60-99)
[2016-11-16 07:21] LABS: BAND NEUTROPHILS 2 %; EOSINOPHILS 1 %; EOSINOPHILS ABSOLUTE (CALC) 0.02 10/3/uL (0.0-0.53); LYMPHOCYTES 69 %; LYMPHOCYTES ABSOLUTE (CALC) 1.04 10/3/uL (0.67-4.30); MONOCYTES 5 %; MONOCYTES ABSOLUTE (CALC) 0.08 10/3/uL (0.21-1.20); NEUTROPHILS ABSOLUTE (CALC) 0.38 10/3/uL (2.02-8.40); SEGMENTED NEUTROPHIL (0) 23 %; TOTAL NUCLEATED CELLS 100
[2016-11-16 07:22] LABS: HELMET CELLS OCC (0-2/OIF); POLYCHROMASIA 1+ (2-5/OIF) (0-1/OIF); TEARDROP SHAPED RBCS OCC (0-2/OIF)
[2016-11-17 07:15] LABS: MEAN CORPUS HGB CONC 36.3 g/dL (32.0-36.0); MEAN CORPUSCULAR HEMOGLOB 31.3 pg (26.0-34.0); MEAN CORPUSCULAR VOLUME 86.1 fL (80-100); MEAN PLATELET VOLUME 10.3 fL (9.2-13.0); RBC DISTRIBUTION WIDTH 14.8 % (12.0-16.0); RED CELL COUNT 2.08 10/6/uL (4.0-5.6)
[2016-11-17 07:23] LABS: A/G RATIO 0.6 (0.7-1.9); ALBUMIN 2.1 G/DL (3.5-5.0); ALKALINE PHOSPHATASE 106 U/L (45-117); BUN (BLOOD UREA NITROGEN) 18 MG/DL (6-23); CALCIUM, SERUM 7.9 MG/DL (8.5-10.4); CHLORIDE, SERUM 100 MMOL/L (96-112); CO2 (CARBON DIOXIDE) 30 MMOL/L (24-34); CREATININE 0.54 MG/DL (0.55-1.02); GFR AFRICAN AMERICAN 107 ML/MIN (>=60); GFR NON AFRICAN AMERICAN 92 ML/MIN (>=60); GLOBULIN 3.6 G/DL (2.5-4.1); GLUCOSE, SERUM 107 MG/DL (60-99); POTASSIUM, SERUM 4.5 MMOL/L (3.5-5.3); SGOT(AST) 17 U/L (5-40); SGPT(ALT) 8 U/L (5-65); SODIUM, SERUM 134 MMOL/L (135-148); TOTAL BILIRUBIN 3.2 MG/DL (0-1.2); TOTAL PROTEIN 5.7 G/DL (6.0-8.5)
[2016-11-17 07:32] LABS: HEMATOCRIT 17.9 % (36.0-48.0); HEMOGLOBIN 6.5 g/dL (12.0-16.0); PLATELET COUNT 7 10/3/uL (150-400); WHITE BLOOD CELLS 1.4 10/3/uL (4.5-10.5)
[2016-11-17 07:35] LABS: MANUAL DIFF YES %
[2016-11-17 08:02] LABS: BAND NEUTROPHILS 6 %; EOSINOPHILS 1 %; EOSINOPHILS ABSOLUTE (CALC) 0.01 10/3/uL (0.0-0.53); LYMPHOCYTES 64 %; MONOCYTES 4 %; MONOCYTES ABSOLUTE (CALC) 0.06 10/3/uL (0.21-1.20); NEUTROPHILS ABSOLUTE (CALC) 0.43 10/3/uL (2.02-8.40); SEGMENTED NEUTROPHIL (0) 25 %; TOTAL NUCLEATED CELLS 100
[2016-11-17 08:03] LABS: HELMET CELLS OCC (0-2/OIF); POLYCHROMASIA 1+ (2-5/OIF) (0-1/OIF); TEARDROP SHAPED RBCS OCC (0-2/OIF)
[2016-11-17 08:07] LABS: TOXIC GRANULATION SLT; VACUOLATED NEUTROPHILES OCC
[2016-11-17 16:03] LABS: FREE T4 1.66 NG/DL (0.76-1.46)
[2016-11-18 05:38] LABS: MEAN CORPUS HGB CONC 36.2 g/dL (32.0-36.0); MEAN CORPUSCULAR HEMOGLOB 31.4 pg (26.0-34.0); MEAN CORPUSCULAR VOLUME 86.8 fL (80-100); RBC DISTRIBUTION WIDTH 14.2 % (12.0-16.0)
[2016-11-18 05:40] LABS: HEMATOCRIT 28.2 % (36.0-48.0); HEMOGLOBIN 10.2 g/dL (12.0-16.0); MANUAL DIFF YES %; PLATELET COUNT 39 10/3/uL (150-400); RED CELL COUNT 3.25 10/6/uL (4.0-5.6); WHITE BLOOD CELLS 1.4 10/3/uL (4.5-10.5)
[2016-11-18 06:41] LABS: BAND NEUTROPHILS 5 %; LYMPHOCYTES 71 %; LYMPHOCYTES ABSOLUTE (CALC) 0.99 10/3/uL (0.67-4.30); MONOCYTES 6 %; MONOCYTES ABSOLUTE (CALC) 0.08 10/3/uL (0.21-1.20); NEUTROPHILS ABSOLUTE (CALC) 0.32 10/3/uL (2.02-8.40); SEGMENTED NEUTROPHIL (0) 18 %; TOTAL NUCLEATED CELLS 100
[2016-11-18 06:42] LABS: HYPOCHROMIA 1+ (3-10/OIF) (0-2/OIF); MACROCYTES 1+ (5-10/OIF) (0-5/OIF)
[2016-11-19 05:56] LABS: HEMATOCRIT 27.6 % (36.0-48.0); HEMOGLOBIN 9.8 g/dL (12.0-16.0); MEAN CORPUS HGB CONC 35.5 g/dL (32.0-36.0); MEAN CORPUSCULAR HEMOGLOB 30.9 pg (26.0-34.0); MEAN CORPUSCULAR VOLUME 87.1 fL (80-100); MEAN PLATELET VOLUME 11.5 fL (9.2-13.0); RBC DISTRIBUTION WIDTH 14.1 % (12.0-16.0); RED CELL COUNT 3.17 10/6/uL (4.0-5.6)
[2016-11-19 06:04] LABS: BUN (BLOOD UREA NITROGEN) 15 MG/DL (6-23); CALCIUM, SERUM 8.1 MG/DL (8.5-10.4); CHLORIDE, SERUM 100 MMOL/L (96-112); CO2 (CARBON DIOXIDE) 26 MMOL/L (24-34); GFR AFRICAN AMERICAN 110 ML/MIN (>=60); GFR NON AFRICAN AMERICAN 95 ML/MIN (>=60); GLUCOSE, SERUM 87 MG/DL (60-99); POTASSIUM, SERUM 4.3 MMOL/L (3.5-5.3); SODIUM, SERUM 134 MMOL/L (135-148)
[2016-11-19 06:15] LABS: WHITE BLOOD CELLS 1.5 10/3/uL (4.5-10.5)
[2016-11-19 06:16] LABS: MANUAL DIFF YES %; PLATELET COUNT 30 10/3/uL (150-400)
[2016-11-19 07:02] LABS: BAND NEUTROPHILS 8 %; LYMPHOCYTES 72 %; LYMPHOCYTES ABSOLUTE (CALC) 1.08 10/3/uL (0.67-4.30); MONOCYTES 8 %; MONOCYTES ABSOLUTE (CALC) 0.12 10/3/uL (0.21-1.20); RBC MORPHOLOGY NORM (NORMAL); SEGMENTED NEUTROPHIL (0) 12 %; TOTAL NUCLEATED CELLS 50
[2016-11-20 05:56] LABS: HEMATOCRIT 27.6 % (36.0-48.0); HEMOGLOBIN 9.6 g/dL (12.0-16.0); MEAN CORPUS HGB CONC 34.8 g/dL (32.0-36.0); MEAN CORPUSCULAR HEMOGLOB 30.9 pg (26.0-34.0); MEAN CORPUSCULAR VOLUME 88.7 fL (80-100); MEAN PLATELET VOLUME 10.8 fL (9.2-13.0); RBC DISTRIBUTION WIDTH 14.1 % (12.0-16.0); RED CELL COUNT 3.11 10/6/uL (4.0-5.6)
[2016-11-20 05:57] LABS: MANUAL DIFF YES %; PLATELET COUNT 24 10/3/uL (150-400); WHITE BLOOD CELLS 1.5 10/3/uL (4.5-10.5)
[2016-11-20 06:10] LABS: BUN (BLOOD UREA NITROGEN) 14 MG/DL (6-23); CALCIUM, SERUM 8.2 MG/DL (8.5-10.4); CHLORIDE, SERUM 102 MMOL/L (96-112); CO2 (CARBON DIOXIDE) 27 MMOL/L (24-34); GFR AFRICAN AMERICAN 110 ML/MIN (>=60); GFR NON AFRICAN AMERICAN 95 ML/MIN (>=60); GLUCOSE, SERUM 82 MG/DL (60-99); POTASSIUM, SERUM 4.3 MMOL/L (3.5-5.3); SODIUM, SERUM 135 MMOL/L (135-148)
[2016-11-20 06:22] LABS: LYMPHOCYTES 67 %; LYMPHOCYTES ABSOLUTE (CALC) 1.01 10/3/uL (0.67-4.30); MONOCYTES 6 %; MONOCYTES ABSOLUTE (CALC) 0.09 10/3/uL (0.21-1.20); NEUTROPHILS ABSOLUTE (CALC) 0.41 10/3/uL (2.02-8.40); PLATELET ESTIMATE DEC (ADEQUATE); SEGMENTED NEUTROPHIL (0) 27 %; TOTAL NUCLEATED CELLS 100
[2016-11-20 06:27] LABS: RBC MORPHOLOGY NORM (NORMAL)
== END 2016-11-21 16:21 | DRG 871 ==
LOC: ER 19:28 → IMCU 21:14 → 6NO 11-13 15:24
PROVIDERS: Hospitalist; Internal Medicine; Internal Medicine Hematology & Oncology; Internal Medicine Infectious Disease; Nurse Practitioner Acute Care
PROC: 30233R1 Transfusion of Nonautologous Platelets into Peripheral Vein, Percutaneous Approach (ICD-10-PCS; principal; 2016-11-11)
PROC: 30233N1 Transfusion of Nonautologous Red Blood Cells into Peripheral Vein, Percutaneous Approach (ICD-10-PCS; 2016-11-12)
PROC: 02HV33Z Insertion of Infusion Device into Superior Vena Cava, Percutaneous Approach (ICD-10-PCS; 2016-11-21)
DX: A41.01 Sepsis due to Methicillin susceptible Staphylococcus aureus (principal); I21.4 Non-ST elevation (NSTEMI) myocardial infarction; D61.1 Drug-induced aplastic anemia; D61.818 Other pancytopenia; D46.9 Myelodysplastic syndrome, unspecified; I10 Essential (primary) hypertension; K21.9 Gastro-esophageal reflux disease without esophagitis; I48.92 Unspecified atrial flutter; I24.8 Other forms of acute ischemic heart disease; T45.1X5A Adverse effect of antineoplastic and immunosuppressive drugs, initial encounter; I73.9 Peripheral vascular disease, unspecified; I48.91 Unspecified atrial fibrillation; I25.10 Atherosclerotic heart disease of native coronary artery without angina pectoris; R50.81 Fever presenting with conditions classified elsewhere; G89.4 Chronic pain syndrome; D35.02 Benign neoplasm of left adrenal gland; F41.9 Anxiety disorder, unspecified; K44.9 Diaphragmatic hernia without obstruction or gangrene; Z95.1 Presence of aortocoronary bypass graft; Z87.891 Personal history of nicotine dependence; Z86.73 Personal history of transient ischemic attack (TIA), and cerebral infarction without residual deficits; Z90.49 Acquired absence of other specified parts of digestive tract; Z79.899 Other long term (current) drug therapy; Z96.641 Presence of right artificial hip joint
CPT/HCPCS: 36415; 36569; 71010; 76536; 80048; 80053; 80076; 80158; 81001; 82962; 83605; 83615; 83735; 84145; 84439; 84443; 84480; 84484; 85025; 85045; 85610; 85730; 86039; 86160; 86850; 86900; 86901; 86920; 87040; 87070; 87077; 87150; 87186; 87641; 93005; 93306; 96374; 97162-GP; 99291; A9270-GY; C1751; G8978-CK-GP; G8979-CJ-GP; J0360; J0690; J0692; J2405; J3370; J7502; P9036; P9057